=== PATIENT | female | born 1995 | race Caucasian/White ===

== ENCOUNTER 2021-08-30 05:48 | Inpatient (IN) | payer MEDICAID, SELFPAY ==
[2021-08-30] VITALS (25 sets, daily range): BP systolic 105–183; BP diastolic 44–90; PULSE 58–100; RESP 16–18; TEMP 36.2–36.9; O2SAT 95–99; BMI 36.9
[2021-08-30] MEDS: lactated ringers 1,000 ML 999 ML IV (06:15)
[2021-08-30 06:40] LABS: Basophils % 0.2 %; Eosinophils # 0.4 10^3/uL (0.0-0.8); Eosinophils % 2.6 %; Hematocrit 31.5 % (37.0-47.0); Hemoglobin 10.6 g/dL (11.5-15.3); Lymphocytes # 3.7 10^3/uL (0.8-4.8); Lymphocytes % 24.9 %; Mean Corpuscular HGB Conc 33.7 g/dL (30.0-36.0); Mean Corpuscular Hemoglobin 31.5 pg (28.0-34.0); Mean Corpuscular Volume 93.8 fl (81-99); Mean Platelet Volume 10.1 fL (7.4-10.4); Monocytes # 0.7 10^3/uL (0.2-0.9); Neutrophils # 9.81 10^3/uL (1.8-7.7); Neutrophils % 66.7 %; Nucleated Red Blood Cells % 0 %; Platelet Count 349 10^3/cmm (130-400); Red Blood Count 3.36 10^6/uL (4.1-5.3); Red Cell Distribution Width 13.3 % (12.1-15.1); White Blood Count 14.7 10^3/uL (4.0-10.0)
[2021-08-30 06:44] LABS: Amphetamines Screen Urine Negative (Negative); Barbiturates Screen Urine Negative (Negative); Benzodiazepines Screen Urine Negative (Negative); Cocaine Screen Urine Negative (Negative); Opiate Screen Urine Negative (Negative); PCP Screen Urine Negative (Negative); THC Screen Urine Negative (Negative)
[2021-08-30] MEDS: metoclopramide 5 mg/mL SDV 2 mL 10 MG IVP (07:04)
[2021-08-30] MEDS: citric acid-sodium citrate 30 mL UDC PO (07:04)
[2021-08-30] MEDS: famotidine 20 mg/2 mL INJ IVP (07:04)
[2021-08-30] MEDS: lactated ringers 1,000 ML 125 ML IV (07:07)
--- NOTE | 2021-08-30 07:09 | ANES.PREANE2 ---
Pre-Anesthetic Assessment Height/Weight: Height 1.7 m Weight 107.048 kg Pulse Resp BP 88 18 130/90 08/30/21 05:57 08/30/21 05:53 08/30/21 05:57 Operation Date: 08/30/21 07:00 Proposed Procedures p Section With Tubal(Not Applicable) - Terri Dover MD Familial anesthetic complications: None Was Beta Eloisa taken within 24 hours: N/A Was Clonidine taken within 24 hours: N/A Last intake: Intake Last Liquid Date 08/29/21 Last Liquid Time 23:30 Last Solid Date 08/29/21 Last Solid Time 20:00 Social Tobacco (traci) and No alcohol Exam alert, oriented x 3, clear to auscultation bilaterally and regular rate & rhythm Airway Submandibular: within normal limits Cervical ROM: within normal limits Mallampati: Class II Dentition: chipped Anesthetic Plan ASA status: 2 Anesthesia: Regional (specify below) (SAB) Medications/Allergies Home Medications Medication Instructions Recorded Confirmed Last Taken Type Vitamin with Minerals 1 tab PO DAILY 08/30/21 08/30/21 08/29/21 13:00 History Allergies Allergy/AdvReac Type Severity Reaction Status Date / Time No Known Allergies Allergy Verified 08/30/21 06:03 Current Medications Generic Name Dose Route Start Last Admin Trade Name Freq PRN Reason Stop Dose Admin Lactated Ringer's 1,000 mls @ 125 mls/hr 08/30/21 05:52 08/30/21 07:07 Lactated Ringers IV 125 mls/hr .Q8H PRN Administration ANESTHESIA PFS Anesthesia Social History Smoking and tobacco status: current every day smoker Female Reproductive History : 2 Data Anesthesia : 08/30/21 06:10 Short CBC 08/30/21 Range/Units 06:10 WBC 14.7 H (4.0-10.0) 10^3/uL Hgb 10.6 L (11.5-15.3) g/dL Hct 31.5 L (37.0-47.0) % MCV 93.8 (81-99) fl Plt Count 349 (130-400) 10^3/cmm Neut % (Auto) 66.7 % Neut # (Auto) 9.81 H (1.8-7.7) 10^3/uL Cardiac Studies: No Data to Display
--- NOTE | 2021-08-30 08:39 | PM.OPHPUD ---
Labor & Delivery H&P Update Date of Procedure: August 30, 2021 Date H&P Performed: 08/23/21 Admission Diagnosis: Primary indication for procedure: Repeat section with bilateral tubal ligation Planned procedure: Operation Date: 08/30/21 07:00 Proposed Procedures p Section With Tubal(Not Applicable) - Terri Dover MD
--- NOTE | 2021-08-30 08:39 | PM.OP ---
Operative Report Date of procedure: August 30, 2021 Pre-op diagnosis: at 39 weeks gestation Prior section Desired permanent surgical sterilization Post-op diagnosis: Same Procedure done: Repeat low transverse section Bilateral tubal ligation Specimens removed/disposition: Vertex female infant Apgars 8 and 9 weight 3270 g Segments of right and left fallopian tubes Pathology: Segments of right and left fallopian tubes Surgeon: Terri Dover MD Estimated blood loss (mL): 500 IV fluids (mL): 900 Urine output (mL): 150 Complications: None Procedure: After informed consent, the patient was taken to the OR where spinal anesthesia was administered. She was prepped and draped in normal sterile fashion in dorsal supine position with a left lateral tilt. After adequate spinal anesthesia was verified incision was made through her prior scar and carried through to the underlying layer of fascia sharply. The fascial incision was then extended laterally using the Mayos. The fascia was grasped with Anjana clamps and the underlying rectus muscles were dissected off taking care to avoid injury to the underlying tissue. The peritoneum was entered bluntly and the incision site was stretched manually. The bladder blade was inserted and the vesicouterine peritoneum was identified and entered sharply using the Metzenbaums. The bladder flap was then created digitally. The bladder blade was then reinserted Uterine incision was made in a transverse fashion in the lower uterine segment. Amniotic rupture membranes was performed using an Allis clamp and clear fluid was noted. The infant was delivered atraumatically with bulb suction of the mouth and nares at delivery. The cord was clamped and cut and the infant was handed to the waiting pediatric nurse. Cord blood was obtained. The placenta was delivered grossly intact and normal to inspection. A dry sponge was used to clear the uterus of clots and debris. The uterus was then exteriorized from the abdomen. Uterine incision was repaired using 0 chromic in a running locked manner. A second layer of the same suture was used in an imbricating manner. Good hemostasis was obtained. The left fallopian tube was then grasped with a Daina and a proximal portion of the tube was ligated and excised. Tubal ostia were visualized. Segment of tube was sent to pathology. The cut portions of the tube were coagulated using the Bovie. The right fallopian tube was then grasped with a Daina and a midportion of the tube was ligated and excised. Segment of tube was sent to pathology. Tubal ostia were visualized. Cut portions of the tube were coagulated using the Bovie. After hemostasis was verified the uterus was returned to the abdomen. Irrigation was used to clear the gutters of clots and debris and the uterine incision was reinspected for hemostasis. The peritoneum was then reapproximated using 4-0 Vicryl in a running fashion. The subfascial tissue was inspected for hemostasis and the fascia was then reapproximated using 0 Vicryl in a running fashion. The subcutaneous tissue was then irrigated and any small bleeders were coagulated using the Bovie. The subcutaneous tissue was then reapproximated using 4-0 Vicryl in a running fashion. The skin was then reapproximated using 4-0 Vicryl in a running fashion on a Tiago needle. Benzoin Steri-Strips and a pressure bandage were applied and patient went to recovery in good condition. Sponge instrument and needle counts were correct.
--- NOTE | 2021-08-30 08:42 | ANE.PACU2 ---
Inpatient post-anesthesia follow up: Airway intact: Yes Vital signs: Temperature Pulse Rate 88 Respiratory Rate 18 Blood Pressure 130/90 Pulse Oximetry Oxygen Delivery Me thod Room Air Oxygen Flow Rate Fraction of Inspir ed Oxygen Hydration adequate: Yes Nausea and vomiting: No Pain level: 2 Mental status: Baseline
[2021-08-30] MEDS: ketorolac 30 mg/mL INJ IVP ×3 (10:33→23:22)
[2021-08-30] MEDS: dextrose 5%-lactated ringers 1,000 ML 125 ML IV (16:11)
[2021-08-30] MEDS: sodium chloride 0.9% 500 ML 999 ML IV (17:17)
[2021-08-30 20:17] LABS: Hematocrit 28.9 % (37.0-47.0); Hemoglobin 9.7 g/dL (11.5-15.3); Mean Corpuscular HGB Conc 33.6 g/dL (30.0-36.0); Mean Corpuscular Hemoglobin 31.6 pg (28.0-34.0); Mean Corpuscular Volume 94.1 fl (81-99); Mean Platelet Volume 9.9 fL (7.4-10.4); Platelet Count 289 10^3/cmm (130-400); Red Blood Count 3.07 10^6/uL (4.1-5.3); Red Cell Distribution Width 13.3 % (12.1-15.1); White Blood Count 13.8 10^3/uL (4.0-10.0)
[2021-08-31 01:29] VITALS: BP 122/64; PULSE 67; RESP 16; O2SAT 99
[2021-08-31 04:17] VITALS: BP 107/60; PULSE 77; RESP 16
[2021-08-31] MEDS: HYDROcodone-acetaminophen 5-325 mg Tablet PO ×2 (07:21→17:33)
[2021-08-31] MEDS: prenatal vitamin Capsule 1 CAP PO (07:21)
[2021-08-31] MEDS: ferrous sulfate EC 325 mg Tablet PO (07:22)
--- NOTE | 2021-08-31 08:22 | P.PN_ITS ---
Subjective Subjective: She states she is doing fine. She is tolerating a regular diet. Her pain is not bad . Her bleeding is about like a heavy period. She had more swelling in her extremities yesterday that is already resolving today. Vitals/I&O/Wt Last Vital Signs Temp 98.3 F 08/30/21 18:00 Pulse 77 08/31/21 04:17 Resp 16 08/31/21 04:17 BP 107/60 08/31/21 04:17 Pulse Ox 99 08/31/21 01:29 08/30/21 08/31/21 08/31/21 22:59 06:59 14:59 Output Total 550 / 1530 3500 / 5030 Balance -550 / -630 -3500 / -4130 Weight last 48 hrs Weight 107.048 kg Physical Exam 2 Narrative: Alert and oriented, sitting in bed holding baby. Heart regular rate and rhythm lungs clear to auscultation bilaterally abdomen is soft and nontender, fundus is firm and U- 2, extremities have no calf tenderness with only trace edema. Urinary Catheter Management: Dumont Latex Free: Cath Placed During This Visit: yes, but has since been removed by the nurse Reason for Continuing Indwelling Catheter: Decision to DC Catheter Urinary Catheter Date of Insertion: 08/30/21 Urinary Catheter Time of Insertion: 07:30 Date Urinary Catheter Removed: 08/31/21 Time Urinary Catheter Discontinued: 01:00 Data : 08/30/21 20:04 Micro: Microbiology 08/30/21 06:10 Chlamydia trachomatis ([facility]) - Final Urine Random Neisseria gonorrhoeae ([facility]) - Final Trichomonas vaginalis ([facility] - Final A&P Assessment and plan (1) Status post repeat low transverse section: Postop day 1 doing well. When she gets up to shower this morning she was a dvised to take off the outer bandage. Likely discharge home tomorrow if still doing well. Status: Acute (2) Insufficient care, delivered, current hospitalization: Status: Acute Attestations Medical Necessity Statement*: Routine postoperative and care. Coding Level of Care Code Acute Lozenge Maker Helper for Sudhag Fwd Diagnoses Status post repeat low transverse section Z98.891 Insufficient care, delivered, current hospitalization O09.30
[2021-08-31 09:45] VITALS: BP 115/64; PULSE 91; RESP 16; TEMP 37.1
[2021-08-31] MEDS: ibuprofen 800 mg tablet PO ×3 (09:46→21:49)
[2021-08-31] MEDS: docusate sodium 100 mg Capsule PO (09:46)
[2021-08-31 16:17] VITALS: BP 128/76; PULSE 87; RESP 16; TEMP 36.9
[2021-08-31 22:40] VITALS: BP 116/74; PULSE 79; RESP 16; TEMP 36.7
[2021-09-01] MEDS: HYDROcodone-acetaminophen 5-325 mg Tablet PO ×3 (01:01→14:36)
[2021-09-01 04:10] VITALS: BP 110/72; PULSE 84; RESP 16
[2021-09-01] MEDS: docusate sodium 100 mg Capsule PO (08:34)
[2021-09-01] MEDS: ibuprofen 800 mg tablet PO ×2 (08:34→14:24)
[2021-09-01] MEDS: prenatal vitamin Capsule 1 CAP PO (08:34)
[2021-09-01] MEDS: ferrous sulfate EC 325 mg Tablet PO (08:35)
[2021-09-01 08:40] VITALS: BP 133/80; PULSE 89; RESP 16; TEMP 36.8
--- NOTE | 2021-09-01 11:27 | PM.DCS ---
Discharge Providers Date of Admission: 08/30/21 05:48 Date of Discharge: September 01, 2021 Attending Provider at Admission: Terri Dover MD Attending Provider at Discharge: Terri Dover MD Primary Care Provider: Marga El APN Diagnoses at Discharge Discharge Diagnosis (1) Status post repeat low transverse section: Status: Acute (2) Insufficient care, delivered, current hospitalization: Status: Acute Reason for Visit Reason for Visit: 08/30/21 [facility] Hospital Course Hospital Course This is a 26-year-old G2 now P2 who was admitted for repeat section with bilateral tubal ligation. There were no complications of the procedure. On day #2 she was ambulating, tolerating a regular diet, had good pain control and was comfortable with discharge home. Physical Exam Narrative: Alert and oriented sitting up in bed eating lunch, heart regular rate and rhythm lungs clear to auscultation bilaterally, abdomen is soft and nontender, Steri-Strips are in place. Incision is clean dry and intact, extremities have no calf tenderness and minimal edema. Urinary Catheter Management: Dumont Latex Free: Cath Placed During This Visit: yes, but has since been removed by the nurse Reason for Continuing Indwelling Catheter: Decision to DC Catheter Urinary Catheter Date of Insertion: 08/30/21 Urinary Catheter Time of Insertion: 07:30 Date Urinary Catheter Removed: 08/31/21 Time Urinary Catheter Discontinued: 01:00 Discharge Data Studies Completed and Pending Completed Studies During Hospitalization Category Date Time Status Pathology: Surgical [PTH] Routine Pth 08/30/21 08:55 Completed Laboratory Results WBC 13.8 10^3/uL (4.0-10.0) H 08/30/21 20:04 RBC 3.07 10^6/uL (4.1-5.3) L 08/30/21 20:04 Hgb 9.7 g/dL (11.5-15.3) L 08/30/21 20:04 Hct 28.9 % (37.0-47.0) L 08/30/21 20:04 MCV 94.1 fl (81-99) 08/30/21 20:04 MCH 31.6 pg (28.0-34.0) 08/30/21 20:04 MCHC 33.6 g/dL (30.0-36.0) 08/30/21 20:04 RDW 13.3 % (12.1-15.1) 08/30/21 20:04 Plt Count 289 10^3/cmm (130-400) 08/30/21 20:04 MPV 9.9 fL (7.4-10.4) 08/30/21 20:04 Neut % (Auto) 66.7 % 08/30/21 06:10 Lymph % (Auto) 24.9 % 08/30/21 06:10 [place] % (Auto) 5.0 % 08/30/21 06:10 Eos % (Auto) 2.6 % 08/30/21 06:10 Baso % (Auto) 0.2 % 08/30/21 06:10 Neut # (Auto) 9.81 10^3/uL (1.8-7.7) H 08/30/21 06:10 Lymph # (Auto) 3.7 10^3/uL (0.8-4.8) 08/30/21 06:10 [place] # (Auto) 0.7 10^3/uL (0.2-0.9) 08/30/21 06:10 Eos # (Auto) 0.4 10^3/uL (0.0-0.8) 08/30/21 06:10 Baso # (Auto) 0.0 10^3/uL (0.0-0.1) 08/30/21 06:10 Nucleated RBC % (auto) 0 % 08/30/21 06:10 Nucleated RBCs # 0.0 /100WBC 08/30/21 06:10 Urine Opiates Screen Negative ng/mL (Negative) 08/30/21 06:10 Ur Barbiturates Screen Negative ng/mL (Negative) 08/30/21 06:10 Ur Phencyclidine Scrn Negative ng/mL (Negative) 08/30/21 06:10 Ur Amphetamines Screen Negative ng/mL (Negative) 08/30/21 06:10 U Benzodiazepines Scrn Negative ng/mL (Negative) 08/30/21 06:10 Urine Cocaine Screen Negative ng/mL (Negative) 08/30/21 06:10 U Marijuana (THC) Screen Negative ng/mL (Negative) 08/30/21 06:10 Blood Type O Positive 08/30/21 06:10 Rho(D) Type Positive 08/30/21 06:10 Procedures Performed Repeat low transverse section with bilateral tubal ligation Vitals Last Vital Signs Temp 98.2 F 09/01/21 08:40 Pulse 89 09/01/21 08:40 Resp 16 09/01/21 08:40 BP 133/80 09/01/21 08:40 Pulse Ox 99 08/31/21 01:29 Discharge Plan Discharge Patient Disposition: Home Condition: Stable Prescriptions: New ibuprofen 800 mg Tablet 800 mg PO TID PRN (Reason: Abdominal Discomfort) Qty: 30 0RF hydrocodone-acetaminophen 5-325 mg Tablet 1 - 2 tab PO Q4H PRN (Reason: Moderate To Severe Pain) Qty: 10 0RF docusate sodium 100 mg Capsule 100 mg PO BID Qty: 60 0RF Continued Vitamin with Minerals 1 tab PO DAILY 0RF Discharge Orders: Discharge Order (Routine); Ordered 09/01/21 Ordered By: Terri Dover Referrals: Terri Dover MD [Physician] - 1-3 days Discharge Diet: Usual diet Discharge Activity: Limit activity as instructed Patient Instructions: Depression (DC), Bleeding (DC), Preeclampsia and Eclampsia After Delivery (GEN), OB - [place]/Jazz[place], OB Discharge Report, OB Food/Drug Interaction Guide, Opioid Safety, OB Home Care, OB Proud Parent Packet Discharge Attestations Time Spent in Discharge Care*: less than 30 min Quality Metrics Clinical Quality Measures [ No reported AMI, CVA or VTE this stay] Coding Level of Care Code Acute Chg FW DC note Diagnoses Status post repeat low transverse section Z98.891 Insufficient care, delivered, current hospitalization O09.30
[2021-09-01] MEDS: measles,mumps,rubella pf Vial (w/diluent) 0.5 ML SUBCUT (14:24)
[2021-09-01 14:30] VITALS: BP 131/77; PULSE 88; RESP 16; TEMP 36.8
== END 2021-09-01 14:50 | disposition home or self-care (01) | DRG 785 ==
PROVIDERS: Admitting Provider Family Medicine; PCP Nurse Practitioner; Visit Provider Family Medicine
PROC: 10D00Z1 Extraction of Products of Conception, Low, Open Approach (ICD-10-PCS; CPT 59514; principal; 2021-08-30 07:00)
DX: O34.211 Maternal care for low transverse scar from previous cesarean delivery (principal); Z3A.39 39 weeks gestation of pregnancy; Z37.0 Single live birth; O99.334 Smoking (tobacco) complicating childbirth; Z30.2 Encounter for sterilization
CPT/HCPCS: 36415; 51702; 58611; 59025; 59409; 80306; 85025; 85027; 86900; 87491; 87591; 87661; 88302; 90707; 96372; 96374; 96376; J1885; J2274; J2370; J2765; J3490; J7040